=== PATIENT | female | born 1935 | race Caucasian/White ===

== ENCOUNTER 2016-10-31 11:51 | Emergency (ER) | payer MEDICARE, OTHER ==
[~2016-10-31 11:51] MED LIST: ALDACTONE 25MG25 MG PO; COLACE 100MG C100 MG PO; DULCOLAX10 MG PR; ISOSORBIDE MONO10 MG PO; KEPPRA500 MG PO; LACTINEX PACKET1 PKT PO; LEVAQUIN TAB 5500 MG PO; LEXAPRO20 MG PO; LOPRESSOR 25 MG25 MG PO; MIRALAX17 GM PO; NYSTATIN1 EAC1 TOP; PHENERGAN 12.12.5 M1 PO; PLAVIX 75 MG TA75 MG PO; PRAVACHOL20 MG PO; SYNTHROID 50 M50 MCG PO; VENTOLIN/PROVE0.5 ML INH; ZESTRIL2.5 MG PO; ZOFRAN4 MG PO
== END 2016-10-31 15:02 | disposition home or self-care (01) ==
LOC: ER1 11:51
DX: R30.0 Dysuria (principal); R10.30 Lower abdominal pain, unspecified; Z86.73 Personal history of transient ischemic attack (TIA), and cerebral infarction without residual deficits
CPT/HCPCS: 51701; 81001; 99283